=== PATIENT | male | born 1985 | race Caucasian/White ===

== ENCOUNTER → 2017-11-14 | Outpatient (REF) | payer OTHER | LOC: M SFHCLERA 10:51 | DX: R00.2 Palpitations (principal); E66.09 Other obesity due to excess calories ==

== ENCOUNTER → 2017-11-30 | Outpatient (CLI) | payer OTHER | LOC: M SLEEP HO 12:00 | DX: G47.30 Sleep apnea, unspecified (principal) | CPT/HCPCS: G0399 ==

== ENCOUNTER → 2018-02-09 | Outpatient (REF) | payer OTHER ==
[2018-02-09 16:52] LABS: CHLAMYDIA DNA AMPLIFICATION NEGATIVE (NEGATIVE); GC DNA AMPLIFICATION NEGATIVE (NEGATIVE)
== END ==
LOC: M SFHCLERA 10:54
DX: R10.9 Unspecified abdominal pain (principal)

== ENCOUNTER → 2018-02-09 | Outpatient (CLI) | payer OTHER | LOC: M LRY 10:23 | DX: R10.84 Generalized abdominal pain (principal) | CPT/HCPCS: 74018 ==

== ENCOUNTER → 2020-04-02 | Outpatient (REF) | payer OTHER ==
[~2020-04-02] MED LIST: TAMS1CAP17 PO
[2020-04-02 19:21] LABS: HEMATOCRIT 45.3 % (42.0-52.0); HEMOGLOBIN 14.4 g/dl (13.5-17.5); MEAN CORPUSCULAR HEMOGLOBIN 26.7 pg (27.0-33.0); MEAN CORPUSCULAR HGB CONC 31.8 g/dl (32.0-36.5); MEAN CORPUSCULAR VOLUME 83.9 fl (80.0-96.0); PLATELET COUNT, AUTOMATED 275 10^3/uL (150-450); WHITE BLOOD COUNT 10.1 10^3/uL (4.0-10.0)
[2020-04-02 19:27] LABS: BLOOD UREA NITROGEN 17 MG/DL (7-18); CALCIUM LEVEL 8.8 MG/DL (8.5-10.1); CARBON DIOXIDE LEVEL 30 MEQ/L (21-32); CHLORIDE LEVEL 104 MEQ/L (98-107); CREATININE FOR GFR 0.68 MG/DL (0.70-1.30); GLOMERULAR FILTRATION RATE > 60.0 (>60); GLUCOSE, FASTING 88 MG/DL (70-100); POTASSIUM SERUM 4.2 MEQ/L (3.5-5.1); SODIUM LEVEL 137 MEQ/L (136-145)
[2020-04-02 19:31] LABS: INR 0.97
[2020-04-02 19:32] LABS: APPEARANCE, URINE CLEAR (CLEAR); BACTERIA, URINE AUTO NEGATIVE (NEGATIVE); BILIRUBIN, URINE AUTO NEGATIVE (NEGATIVE); BLOOD, URINE BLOOD NEGATIVE (NEGATIVE); COLOR, URINE YELLOW (YELLOW); GLUCOSE, URINE (UA) AUTO NEGATIVE (NEGATIVE); KETONE, URINE AUTO NEGATIVE (NEGATIVE); LEUKOCYTE ESTERASE, URINE AUTO NEGATIVE (NEGATIVE); NITRITE, URINE AUTO NEGATIVE (NEGATIVE); PROTEIN, URINE AUTO NEGATIVE (NEGATIVE); RBC, URINE AUTO 0 /HPF (0-3); SPECIFIC GRAVITY URINE AUTO 1.018 (1.002-1.035); SQUAMOUS EPITHELIAL CELL UR AU 0 /HPF (0-6); UROBILINOGEN, URINE AUTO 0.2 mg/dL (0.0-2.0); WBC, URINE AUTO 0 /HPF (0-3)
== END ==
LOC: M SFHCLERA 13:08
PROVIDERS: ATTEND Nurse Practitioner Women's Health
DX: N13.1 Hydronephrosis with ureteral stricture, not elsewhere classified (principal); Z01.812 Encounter for preprocedural laboratory examination

== ENCOUNTER → 2020-04-08 | Outpatient (CLI) | payer OTHER | LOC: M LABSMTC 09:28 | PROVIDERS: ATTEND Anesthesiology | DX: Z11.59 Encounter for screening for other viral diseases (principal) | CPT/HCPCS: C9803; U0002 ==

== ENCOUNTER 2020-04-11 08:58 | Day surgery (SDC) | payer OTHER ==
[~2020-04-11] VITALS: Ht 177.8 cm; Wt 153.8 kg
[~2020-04-11 08:58] MED LIST changes: +CIPROFLOXACIN 400 MG in IV 1 EA IV ONE; +CONRAY-60 60% 50ML VIAL (Q9961) As Ordered ONE; +LR 1,000 ML IV ONE
[2020-04-11] MEDS ORDERED: propofoL 200 MG/20 ML VIAL As Ordered ONE ×2 (09:36→10:50)
[2020-04-11] MEDS ORDERED: MIDAZOLAM INJ 2MG/2ML VIAL (J2250 PER 1MG) As Ordered ONE (09:37)
[2020-04-11] MEDS ORDERED: LIDOCAINE 2% 100MG/5ML SDV (FOR ANES.) As Ordered ONE (09:37)
[2020-04-11] MEDS ORDERED: dexameTHASONE 4 MG/ML 1ML VIAL (J1100 PER 1MG) As Ordered ONE (09:38)
[2020-04-11] MEDS ORDERED: fentaNYL 100 MCG/2 ML INJECTION (J3010) As Ordered ONE ×2 (09:38→11:28)
[2020-04-11] MEDS ORDERED: ONDANSETRON 4MG/2ML VIAL As Ordered ONE (09:38)
[2020-04-11] MEDS ORDERED: KETOROLAC 60MG 2ML VIAL As Ordered ONE (10:50)
[2020-04-11] MEDS ORDERED: fentaNYL 100 MCG/2 ML INJECTION (J3010) IV PRN (12:45)
[2020-04-11] MEDS ORDERED: PERCOCET 5MG/325MG TAB PO PRN (12:45)
[2020-04-11] MEDS ORDERED: ONDANSETRON 4MG/2ML VIAL IV PRN (12:45)
[2020-04-11] MEDS ORDERED: oxyCODONE 5MG TAB PO PRN (12:45)
[2020-04-11] MEDS ORDERED: LR 1,000 ML IV SCH (12:45)
[2020-04-11] MEDS ORDERED: HYDROMORPHONE HCL 0.5 MG/ 0.5 ML SYRINGE (J1170 PER 1) IV PRN (12:45)
[2020-04-11 12:50] VITALS: BP 140/97
--- NOTE | 2020-04-28 11:35 | RO ---
DATE OF OPERATION: 04/11/2020 PREOPERATIVE DIAGNOSIS: Left kidney stone. POSTOPERATIVE DIAGNOSIS: Left kidney stone. PROCEDURES: * Cystoscopy. * Left ureteroscopy. * Left retrograde pyelogram with intraop interpreted images. * Left ureteral stent placement. SURGEON: Matt Canales MD. SHIP CEILER: None. ANESTHESIA: General. OPERATIVE INDICATIONS: This is a 34-year-old male who was found to have obstructing 5-6 mm proximal left ureteral stone on recent CT scan. He is brought back to the operating room today to above procedure. DESCRIPTION OF PROCEDURE: The patient was brought to the operating room and general anesthesia was induced. Prophylactic antibiotics were infused. He was placed in the dorsal lithotomy position, prepped, and draped in the usual sterile fashion. A rigid cystoscope was inserted into the urethral meatus and advanced to the bladder. A guidewire was advanced in left collecting system. I then advanced the ureteral access sheath over the wire. I went up the access sheath with a flexible ureteroscope and of note I had a moderate amount of difficulty getting the ureteroscope through the proximal ureter as it was very narrow. I ultimately was able to get the scope into the renal pelvis but it caused minor trauma to the left proximal ureter. I examined the left kidney thoroughly and there were no stones inside the left kidney. A retrograde pyelogram was performed and notable for mild left hydronephrosis with no extravasation. I then withdrew the ureteroscope along with the access sheath and no stones were seen inside the ureter. This indicated that the patients stone had passed. At this point the guidewire was utilized to advance a 6-Chinese x 22- 32 cm JJ ureteral stent into the left collecting system. The wire was removed and there were adequate curls of the stent in left renal pelvis and in the bladder. The bladder was emptied of all fluids and this marked conclusion of the procedure. The patient was taken out of the dorsal lithotomy position, awakened from anesthesia, and transferred to the recovery room in stable condition. ESTIMATED BLOOD LOSS: 5 mL. COMPLICATIONS: None. SPECIMEN: None. PLAN: Patient will follow-up in urology clinic in 2-3 weeks for stent removal. [facility]ITAL[facility]
--- NOTE | 2020-04-30 10:35 | REP ---
RETROGRADE PYELOGRAM: CLINICAL: Left stent placement. TECHNIQUE: Two intraoperative fluoroscopic images using portable C-arm technique. FINDINGS: Two images demonstrate mild hydronephrosis and subsequent satisfactory left ureteral stent placement. Total fluoroscopic time: 18 seconds. IMPRESSION: Mild hydronephrosis. Satisfactory stent placement. MTDD
== END 2020-04-11 13:12 | disposition home or self-care (01) ==
LOC: M SDC 08:58
PROVIDERS: ATTEND Urology
DX: N20.0 Calculus of kidney (principal); F41.9 Anxiety disorder, unspecified; G47.33 Obstructive sleep apnea (adult) (pediatric); M79.7 Fibromyalgia; R01.1 Cardiac murmur, unspecified; Z88.0 Allergy status to penicillin; Z88.8 Allergy status to other drugs, medicaments and biological substances
CPT/HCPCS: 52332; 74420; C1769; C1894; C2617; J0744; J1100; J1885; J2250; J2405; J3010; Q9961